=== PATIENT | male | born 1970 | race Hispanic/Latino ===

== ENCOUNTER 2021-12-30 15:16 | Inpatient (IN) | payer OTHER ==
[2021-12-30] MEDS ORDERED: LORazepam 2 MG/ML VIAL IV PRN ×3 (15:53)
[2021-12-30] MEDS ORDERED: SODIUM CHLORIDE 0.9% 1000 ML 1,000 ML IV ONE (15:54)
--- NOTE | 2021-12-30 15:58 | Emergency Department Report ---
HPI - General Chief Complaint: Seizure Time Seen by Provider: 12/30/21 15:40 - HPI HPI: Room 3 The patient is a 51-year-old male present with a chief complaint of seizures. The patient is currently at [facility] for alcohol detox when he repor tedly had "multiple seizures." The patient states he remembers getting dizzy and "nodding off" and his next memory is awakening in the ambulance. Per EMS the patient was witnessed having multiple seizures. Patient was administered Ativan 2 mg IM at 1430 by [facility] staff prior to transport to the ED. The patient denies history of seizures and states that he is at [facility] for alcohol detox. Patient states his last alcohol consumption occurred approximate 2 weeks ago. Patient appears to be on CIWA protocol at [facility] Past Medical Hx - Past Medical History Hx Hypertension: Yes Hx Psychiatric Treatment: Yes (Major depressive disorder) Additional medical history: Alcoholism - Surgical History Past Surgical History?: No Hx Cholecystectomy: Yes Hx Appendectomy: Yes - Family History Family history: no significant - Social History Smoking Status: Current Every Day Smoker (1 pack/day) Substance Use Type: None (Denies illicit drug use), Alcohol (History of consuming a 12 pack of beer daily) ED Review of Systems ROS: Stated complaint: SEIZURE/FROM [facility] Other details as noted in HPI Constitutional: no symptoms reported Eyes: denies: eye pain ENT: denies: ear pain Respiratory: no symptoms reported Cardiovascular: denies: chest pain Endocrine: no symptoms reported Gastrointestinal: denies: abdominal pain Musculoskeletal: denies: back pain Neurological: other (Seizure) Physical Exam - Physical Exam Vital Signs: Vital Signs 12/30/21 15:24 Temperature 98.9 F Pulse Rate 121 H Respiratory 14 Rate Blood Pressure 180/93 [Left] O2 Sat by Pulse 97 Oximetry Physical Exam: GENERAL: The patient is well-developed well-nourished male lying on stretcher not appearing to be in acute distress. [] HEENT: Normocephalic. Atraumatic. Extraocular motions are intact. Patient has moist mucous membranes. NECK: Supple. Trachea midline CHEST/LUNGS: Clear to auscultation. There is no respiratory distress noted. HEART/CARDIOVASCULAR: Regular. There is no tachycardia. There is no gallop rub or murmur. ABDOMEN: Abdomen is soft, nontender. Patient has normal bowel sounds. There is no abdominal distention. SKIN: There is no rash. There is no edema. There is no diaphoresis. NEURO: The patient is awake, alert, and oriented. The patient is cooperative. The patient has no focal neurologic deficits. The patient has normal speech. Trace tremulousness appreciated. No asterixis MUSCULOSKELETAL: There is no evidence of acute injury. ED Course Vital Signs 12/30/21 15:24 Temperature 98.9 F Pulse Rate 121 H Respiratory 14 Rate Blood Pressure 180/93 [Left] O2 Sat by Pulse 97 Oximetry ED Medical Decision Making - Lab Data Result diagrams: 12/30/21 15:55 12/30/21 15:55 Laboratory Tests 12/30/21 12/30/21 12/30/21 15:55 15:55 15:55 WBC 7.2 RBC 3.93 Hgb 13.7 Hct 39.4 MCV 100 H MCH 35 H MCHC 35 H RDW 15.9 H Plt Count 191 Lymph % (Auto) 14.7 [place] % (Auto) 8.2 H Eos % (Auto) 3.1 Baso % (Auto) 0.6 Lymph # (Auto) 1.1 L [place] # (Auto) 0.6 Eos # (Auto) 0.2 Baso # (Auto) 0.0 Seg Neutrophils % 73.4 H Seg Neutrophils # 5.3 Sodium 137 Potassium 3.7 Chloride 98.9 Carbon Dioxide 24 Anion Gap 18 BUN 14 Creatinine 0.9 Estimated GFR > 60 BUN/Creatinine Ratio 16 Glucose 135 H Calcium 9.6 Magnesium 2.20 Total Bilirubin 0.60 AST 29 ALT 23 Alkaline Phosphatase 106 Total Protein 6.6 Albumin 4.1 Albumin/Globulin Ratio 1.6 TSH 2.230 Free T4 1.12 Plasma/Serum Alcohol 12/30/21 15:55 WBC RBC Hgb Hct MCV MCH MCHC RDW Plt Count Lymph % (Auto) [place] % (Auto) Eos % (Auto) Baso % (Auto) Lymph # (Auto) [place] # (Auto) Eos # (Auto) Baso # (Auto) Seg Neutrophils % Seg Neutrophils # Sodium Potassium Chloride Carbon Dioxide Anion Gap BUN Creatinine Estimated GFR BUN/Creatinine Ratio Glucose Calcium Magnesium Total Bilirubin AST ALT Alkaline Phosphatase Total Protein Albumin Albumin/Globulin Ratio TSH Free T4 Plasma/Serum Alcohol < 0.01 - Radiology Data Radiology results: report reviewed (CT head), image reviewed (CT head) [facility] [address] [place] [address] Cat Scan Report Signed Patient: CODY SALINAS MR#: [id number] : 1970 Acct:[id number] Age/Sex: 51 / M ADM Date: 12/30/21 Loc: ED Attending Dr: Ordering Physician: EPIFANIO RAMIREZ MD Date of Service: 12/30/21 Procedure(s): CT head/brain wo con Accession Number(s): [id number] cc: EPIFANIO RAMIREZ MD CT BRAIN: 12/30/2021 INDICATION / CLINICAL INFORMATION: Seizures. COMPARISON: None available. FINDINGS: BRAIN/INTRACRANIAL STRUCTURES: Unenhanced CT images of the brain demonstrate no evidence of acute abnormality. Ventricles and sulci are somewhat prominent in size, consistent with mild diffuse cerebral atrophy for age. There is a central area of hypodensity present in the central rody, consistent with remote small vessel ischemic change. There is no evidence of acute large vessel territory ischemic injury, hemorrhage, or mass. There are no abnormal extra-axial fluid collections. EXTRACRANIAL STRUCTURES: Unremarkable. IMPRESSION: Cerebral atrophy for age. Central pontine hypodensity, consistent with remote small vessel ischemic change. No acute abnormality. All CT scans at this location are performed using dose reduction to ALARA by means of automated exposure control. Signer Name: Sergio Lea MD Signed: 12/30/2021 4:28 PM Workstation Name: [id number] Transcribed By: KANIKA Dictated By: Sergio Lea MD Electronically Authenticated By: Sergio Lea MD Signed Date/Time: 12/30/211627 DD/ 25 TD/TT: - Differential Diagnosis Alcohol withdrawal seizures, ICH, hypomagnesemia, Critical care attestation.: If time is entered above; I have spent that time in minutes in the direct care of this critically ill patient, excluding procedure time. ED Disposition Clinical Impression: Alcohol withdrawal Disposition: ADMITTED INPATIENT Is pt being admited?: Yes Does the pt Need Aspirin: No Condition: Fair Time of Disposition: 17:08 (Hospitalist called (Dr. Murphy))
--- NOTE | 2021-12-30 16:32 | Cat Scan Report ---
CT BRAIN: 12/30/2021 INDICATION / CLINICAL INFORMATION: Seizures. COMPARISON: None available. FINDINGS: BRAIN/INTRACRANIAL STRUCTURES: Unenhanced CT images of the brain demonstrate no evidence of acute abn ormality. Ventricles and sulci are somewhat prominent in size, consistent with mild diffuse cerebral atrophy fo r age. There is a central area of hypodensity present in the central rody, consistent with remote small vess el ischemic change. There is no evidence of acute large vessel territory ischemic injury, hemorrhage, or mass. There are no abnormal extra-axial fluid collections. EXTRACRANIAL STRUCTURES: Unremarkable. IMPRESSION: Cerebral atrophy for age. Central pontine hypodensity, consistent with remote small vessel ischemic change. No acute abnormality. All CT scans at this location are performed using dose reduction to ALARA by means of automated expos ure control. Signer Name: Sergio Lea MD Signed: 12/30/2021 4:28 PM Workstation Name: [id number]
[2021-12-30 16:53] LABS: Alanine Aminotransferase 23 units/L (7-56); Albumin 4.1 g/dL (3.9-5); BUN/Creatinine Ratio 16; Blood Urea Nitrogen 14 mg/dL (9-20); Calcium 9.6 mg/dL (8.4-10.2); Hemolysis Index 10
[2021-12-30 16:58] LABS: Basophils % (Auto) 0.6 % (0.0-1.8); Eosinophils # (Auto) 0.2 K/mm3 (0.0-0.4); Eosinophils % (Auto) 3.1 % (0.0-4.3); Hematocrit 39.4 % (35.5-45.6); Hemoglobin 13.7 gm/dl (11.8-15.2); Lymphocytes # (Auto) 1.1 K/mm3 (1.2-5.4); Lymphocytes % (Auto) 14.7 % (13.4-35.0); Mean Corpuscular HGB Conc 35 % (32-34); Mean Corpuscular Volume 100 fl (84-94); Monocytes # (Auto) 0.6 K/mm3 (0.0-0.8); Monocytes % (Auto) 8.2 % (0.0-7.3); Platelet Count 191 K/mm3 (140-440); Red Blood Count 3.93 M/mm3 (3.65-5.03); Red Cell Distribution Width 15.9 % (13.2-15.2)
[2021-12-30 17:06] LABS: Free T4 (Free Thyroxine) 1.12 ng/dL (0.76-1.46)
--- NOTE | 2021-12-30 17:11 | History and Physical Report ---
History of Present Illness Chief complaint: He kept having seizures History of present illness: 51 YO Male with HTN, MDD, ETOH Dependence, Nicotine Dependence, Medication Noncompliance presents to ED for evaluation. Patient is confused with diminished cognition at the time my evaluation and is unable provide detailed history. Patient history taken from EMS staff, ED staff, as well as reviewed with staff. As per staff the patient experienced multiple seizures today. The patient was admitted to [facility] for alcohol dependence. Patient reportedly consumes approximately 12 beers daily. EMS was notified for the aforementioned symptoms and upon arrival the patient was found to be in distress and subsequently transported to [facility] for the care and evaluation of the aforementioned symptoms. The patient was seen and evaluated in the emergency department. All lab and imaging studies reviewed. Patient found to have alcohol withdrawal seizures, metabolic encephalopathy, delirium tremens. Patient admitted to telemetry and initiated on CIWA protocol and treated with supportive care. No reports of fever, chills, chest pain, palpitation or productive cough, skin rash, recent contact, known exposure to COVID-19. No prior admission for review. No medication listed at time of admission for reconciliation. Advanced care planning conducted in ED. Past History Past Medical History: hypertension, other (See HPI) Past Surgical History: appendectomy, cholecystectomy Social history: single, smoking, alcohol abuse Family history: hypertension Medications and Allergies Allergies Allergy/AdvReac Type Severity Reaction Status Date / Time No Known Allergies Allergy Verified 12/30/21 15:26 Active Meds: Active Medications Lorazepam (Lorazepam 2 Mg/Ml Vial) 2 mg IV Q1HR PRN PRN Reason: CIWA-Ar 8-15 Lorazepam (Lorazepam 2 Mg/Ml Vial) 4 mg IV Q1HR PRN PRN Reason: CIWA-Ar 16-25 Lorazepam (Lorazepam 2 Mg/Ml Vial) 4 mg IV Q15MIN PRN PRN Reason: CIWA-Ar >25 Review of Systems ROS unobtainable: due to mental status Exam - Constitutional Vitals: Temp Pulse Resp BP Pulse Ox 98.9 F 99 H 17 146/97 96 12/30/21 15:24 12/30/21 16:35 12/30/21 16:35 12/30/21 16:35 12/30/21 16:35 General appearance: Present: mild distress - EENT Eyes: Present: PERRL, miosis ENT: hearing intact, clear oral mucosa - Neck Neck: Present: supple - Respiratory Respiratory effort: normal Respiratory: bilateral: CTA - Cardiovascular Rhythm: regular Heart Sounds: Present: S1 & S2 - Extremities Extremities: pulses symmetrical, No edema Peripheral Pulses: within normal limits - Abdominal General gastrointestinal: Present: soft, non-tender, non-distended, normal bowel sounds Male genitourinary: Present: normal - Integumentary Integumentary: Present: clear, warm, dry - Musculoskeletal Musculoskeletal: generalized weakness - Psychiatric Psychiatric: no appropriate mood/affect, no intact judgment & insight, no memory intact, agitated - Neurologic Neurologic: CNII-XII intact, no focal deficits, moves all extremities, no gait normal Results - Labs CBC & Chem 7: 12/30/21 15:55 12/30/21 15:55 Labs: Abnormal lab results 12/30/21 12/30/21 Range/Units 15:55 15:55 MCV 100 H (84-94) fl MCH 35 H (28-32) pg MCHC 35 H (32-34) % RDW 15.9 H (13.2-15.2) % [place] % (Auto) 8.2 H (0.0-7.3) % Lymph # (Auto) 1.1 L (1.2-5.4) K/mm3 Seg Neutrophils % 73.4 H (40.0-70.0) % Glucose 135 H (75-100) mg/dL Assessment and Plan - Patient Problems (1) Alcohol withdrawal syndrome Current Visit: Yes Status: Acute Qualifiers: Complication of substance-induced condition: with perceptual disturbance Qualified Code(s): F10.232 - Alcohol dependence with withdrawal with perceptual disturbance Plan to address problem: CIWA protocol, IV fluid resuscitation therapy, banana bag, thiamine, folic acid, multivitamin daily, outpatient follow-up with Alcoholics Anonymous. (2) Delirium tremens Current Visit: Yes Status: Acute Plan to address problem: CIWA protocol, benzodiazepine therapy as clinically indicated, IV fluid resuscitation therapy, neuro check, seizure precautions, aspiration precautions, fall precautions (3) Metabolic encephalopathy Current Visit: Yes Status: Acute Plan to address problem: CT head, neuro check, seizure precautions (4) Nicotine dependence Current Visit: Yes Status: Acute Qualifiers: Nicotine product type: cigarettes Substance use status: in withdrawal Qualified Code(s): F17.213 - Nicotine dependence, cigarettes, with withdrawal Plan to address problem: Supportive care, smoking cessation counseling (5) Hypertension Current Visit: Yes Status: Acute Qualifiers: Hypertension type: primary hypertension Qualified Code(s): I10 - Essential (primary) hypertension Plan to address problem: Monitor blood pressure every shift, continue medical management. (6) Major depression Current Visit: Yes Status: Acute Plan to address problem: Mental health team consulted, continue medical management. (7) DVT prophylaxis Current Visit: Yes Status: Acute Plan to address problem: SCD to bilateral lower extremities while in bed (8) Advance care planning Current Visit: Yes Status: Acute Plan to address problem: Disease education conducted, care plan discussed, diagnoses discussed, prognosis discussed, patient is full code, +30 minutes.
[2021-12-30 17:19] LABS: Amphetamine Screen,Urine Negative; Benzodiazepines Screen,Urine Negative; Cocaine Screen,Urine Negative; Methadone Screen,Urine Negative; Opiate Screen,Urine Negative
[2021-12-30 17:21] LABS: Cannabinoid Screen,Urine Positive
[2021-12-30] MEDS ORDERED: oxyCODONE /ACETAMINOPHEN 5-325MG TAB PO PRN (18:01)
[2021-12-30] MEDS ORDERED: ALBUTEROL 2.5 MG/3 ML NEBU IH PRN (18:01)
[2021-12-30] MEDS ORDERED: ONDANSETRON 4 MG/2 ML INJ IV PRN (18:01)
[2021-12-30] MEDS ORDERED: ACETAMINOPHEN 325 MG TAB PO PRN (18:01)
[2021-12-30] MEDS ORDERED: HYDROmorphone 1 MG/1 ML INJ IV PRN (18:01)
[2021-12-30] MEDS ORDERED: THIAMINE 100 MG, FOLIC ACID 1 MG, MULTIPLE VITAMIN INJ, ADULT 10 ML in SODIUM CHLORIDE ... IV ONE (18:03)
[2021-12-30] MEDS ORDERED: THIAMINE 100 MG TAB PO ONE (18:03)
[2021-12-30] MEDS ORDERED: MULTIVITAMINS ,THERAPEUTIC TAB PO ONE (18:03)
[2021-12-30] MEDS: SODIUM CHLORIDE 0.9% 1000 ML 1,000 ML IV SCH (22:31)
--- NOTE | 2021-12-31 07:37 | Progress Note ---
Assessment and Plan Assessment and plan: #Acute metabolic encephalopathy -CT head shows age related changes, no acute changes -neuro checks, seizure precautions -Neurology consultation ordered #Seizure -no prior history per patient -Neurology consult #Alcohol withdrawal syndrome #Alcohol dependence -patient reports abstinence from ETOH for over a month -continue CIWA protocol, multivitamins -outpatient follow-up with Alcoholics Anonymous. #Hypertension -restarted losartan 100mg qday, patient also taking HCTZ 12.5mg will hold at this time #Major depression -Psychiatry consult -patient takes celexa outpatient dosage unknown, will restart after med reconciliation #Nicotine dependence -continue supportive care at this time History Interval history: No acute events overnight. Patient reports feeling fine and ready to go. Denies recent alcohol use. He has been in inpatient psychiatric facilities for the last 3 weeks. He has no complaints at this time. Hospitalist Physical - Physical exam Narrative exam: GENERAL: Well-developed well-nourished. In no acute distress. HEENT: Normocephalic. Atraumatic. NECK: Supple. CHEST/LUNGS: CTAB on room air HEART/CARDIOVASCULAR: RRR. No murmur, rubs or gallops appreciated. ABDOMEN: +BS. NT/ND. SKIN: No rashes noted. NEURO: No focal motor deficit. Follows all commands and is ambulatory. MUSCULOSKELETAL: No joint effusion EXTREMITIES: No cyanosis, clubbing or edema. PSYCH: Cooperative. - Constitutional Vitals: Temp Pulse Resp BP Pulse Ox 97.6 F 88 18 117/82 97 12/31/21 04:18 12/31/21 04:18 12/31/21 04:18 12/31/21 04:18 12/31/21 04:18 General appearance: Present: mild distress Results - Labs CBC & Chem 7: 12/30/21 15:55 12/31/21 07:08 Labs: Laboratory Last Values WBC 7.2 K/mm3 (4.5-11.0) 12/30/21 15:55 RBC 3.93 M/mm3 (3.65-5.03) 12/30/21 15:55 Hgb 13.7 gm/dl (11.8-15.2) 12/30/21 15:55 Hct 39.4 % (35.5-45.6) 12/30/21 15:55 MCV 100 fl (84-94) H 12/30/21 15:55 MCH 35 pg (28-32) H 12/30/21 15:55 MCHC 35 % (32-34) H 12/30/21 15:55 RDW 15.9 % (13.2-15.2) H 12/30/21 15:55 Plt Count 191 K/mm3 (140-440) 12/30/21 15:55 Lymph % (Auto) 14.7 % (13.4-35.0) 12/30/21 15:55 [place] % (Auto) 8.2 % (0.0-7.3) H 12/30/21 15:55 Eos % (Auto) 3.1 % (0.0-4.3) 12/30/21 15:55 Baso % (Auto) 0.6 % (0.0-1.8) 12/30/21 15:55 Lymph # (Auto) 1.1 K/mm3 (1.2-5.4) L 12/30/21 15:55 [place] # (Auto) 0.6 K/mm3 (0.0-0.8) 12/30/21 15:55 Eos # (Auto) 0.2 K/mm3 (0.0-0.4) 12/30/21 15:55 Baso # (Auto) 0.0 K/mm3 (0.0-0.1) 12/30/21 15:55 Seg Neutrophils % 73.4 % (40.0-70.0) H 12/30/21 15:55 Seg Neutrophils # 5.3 K/mm3 (1.8-7.7) 12/30/21 15:55 Sodium 137 mmol/L (137-145) 12/30/21 15:55 Potassium 3.7 mmol/L (3.6-5.0) 12/30/21 15:55 Chloride 98.9 mmol/L (98-107) 12/30/21 15:55 Carbon Dioxide 24 mmol/L (22-30) 12/30/21 15:55 Anion Gap 18 mmol/L 12/30/21 15:55 BUN 14 mg/dL (9-20) 12/30/21 15:55 Creatinine 0.9 mg/dL (0.8-1.3) 12/30/21 15:55 Estimated GFR > 60 ml/min 12/30/21 15:55 BUN/Creatinine Ratio 16 % 12/30/21 15:55 Glucose 135 mg/dL (75-100) H 12/30/21 15:55 Calcium 9.6 mg/dL (8.4-10.2) 12/30/21 15:55 Magnesium 2.20 mg/dL (1.7-2.3) 12/30/21 15:55 Total Bilirubin 0.60 mg/dL (0.1-1.2) 12/30/21 15:55 AST 29 units/L (5-40) 12/30/21 15:55 ALT 23 units/L (7-56) 12/30/21 15:55 Alkaline Phosphatase 106 units/L (35-129) 12/30/21 15:55 Total Protein 6.6 g/dL (6.3-8.2) 12/30/21 15:55 Albumin 4.1 g/dL (3.9-5) 12/30/21 15:55 Albumin/Globulin Ratio 1.6 % 12/30/21 15:55 TSH 2.230 mlU/mL (0.270-4.200) 12/30/21 15:55 Free T4 1.12 ng/dL (0.76-1.46) 12/30/21 15:55 Urine Opiates Screen Negative 12/30/21 16:35 Urine Methadone Screen Negative 12/30/21 16:35 Ur Barbiturates Screen Negative 12/30/21 16:35 Ur Phencyclidine Scrn Negative 12/30/21 16:35 Ur Amphetamines Screen Negative 12/30/21 16:35 U Benzodiazepines Scrn Negative 12/30/21 16:35 Urine Cocaine Screen Negative 12/30/21 16:35 U Marijuana (THC) Screen Positive 12/30/21 16:35 Drugs of Abuse Note Disclamer 12/30/21 16:35 Plasma/Serum Alcohol < 0.01 % (0-0.07) 12/30/21 15:55 Pino/IV: Voiding Method Toilet Active Medications - Current Medications Current Medications: Generic Name Dose Route Start Last Admin Trade Name Freq PRN Reason Stop Dose Admin Acetaminophen 650 mg 12/30/21 18:01 Acetaminophen 325 Mg Tab PO Q4H PRN Pain MILD(1-3)/Fever >100.5/ALVES Albuterol 2.5 mg 12/30/21 18:01 Albuterol 2.5 Mg/3 Ml Nebu IH Q4HRT PRN Shortness Of Breath Folic Acid 1 mg 12/31/21 10:00 Folic Acid 1 Mg Tab PO QDAY BOBBY Hydromorphone HCl 0.5 mg 12/30/21 18:01 Hydromorphone 1 Mg/1 Ml Inj IV Q23H PRN Pain , Severe (7-10) Sodium Chloride 1,000 mls @ 125 mls/hr 12/30/21 18:15 12/30/21 22:31 Nacl 0.9% 1000 Ml IV 125 mls/hr DIRECT BOBBY Administration Lorazepam 2 mg 12/30/21 15:53 Lorazepam 2 Mg/Ml Vial IV Q1HR PRN CIWA-Ar 8-15 Lorazepam 4 mg 12/30/21 15:53 Lorazepam 2 Mg/Ml Vial IV Q1HR PRN CIWA-Ar 16-25 Lorazepam 4 mg 12/30/21 15:53 12/31/21 01:00 Lorazepam 2 Mg/Ml Vial IV 4 mg Q15MIN PRN Administration CIWA-Ar >25 Ondansetron HCl 4 mg 12/30/21 18:01 Ondansetron 4 Mg/2 Ml Inj IV Q8H PRN Nausea And Vomiting Oxycodone/Acetaminophen 1 tab 12/30/21 18:01 Oxycodone /Acetaminophen 5-325mg Tab PO Q12H PRN Pain, Moderate (4-6) Sodium Chloride 10 ml 12/30/21 22:00 12/30/21 22:31 Sodium Chloride 0.9% 10 Ml Flush Syringe IV 10 ml BID BOBBY Administration Sodium Chloride 10 ml 12/30/21 18:01 Sodium Chloride 0.9% 10 Ml Flush Syringe IV PRN PRN LINE FLUSH
[2021-12-31 07:47] LABS: Blood Urea Nitrogen 12 mg/dL (9-20); Calcium 8.9 mg/dL (8.4-10.2); Hemolysis Index 4
[2021-12-31] MEDS: SODIUM CHLORIDE 0.9% 1000 ML 1,000 ML IV SCH (07:48)
[2021-12-31 07:54] LABS: BUN/Creatinine Ratio 17
[2021-12-31] MEDS ORDERED: FOLIC ACID 1 MG TAB PO SCH (10:00)
[2021-12-31] MEDS ORDERED: LOSARTAN 50 MG TAB PO SCH (11:00)
--- NOTE | 2021-12-31 11:13 | Consultation ---
History of Present Illness - Reason for Consult Consult date: 12/31/21 Reason for consult: Detox - Chief Complaint Chief complaint: He kept having seizures - History of Present Psychiatric Illness ED Note: The patient is a 51-year-old male present with a chief complaint of seizures. The patient is currently at [facility] for alcohol detox when he reportedly had "multiple seizures." The patient states he remembers getting dizzy and "nodding off" and his next memory is awakening in the ambulance. Per EMS the patient was witnessed having multiple seizures. Patient was administered Ativan 2 mg IM at 1430 by [facility] staff prior to transport to the ED. The patient denies history of seizures and states that he is at [facility] for alcohol detox. Patient states his last alcohol consumption occur red approximate 2 weeks ago. Patient appears to be on CIWA protocol at [facility]. The patient was seen today. He is calm, alert and oriented x2. The patient reports that he got into an argument with his children threatening them which resulted in them calling the police and him being sent to [facility]. He reports having seizures at [facility]. He denies being depressed and became upset when asked about suicidality. Patient states his last alcohol consumption was about 2 weeks ago. No withdrawal symptoms noted. the patient denies any current suicidal/homicidal ideation. Diagnoses: Depression, Alcohol use disorder Suicide attempts or Self-harm behavior: Denies Prior psychiatric hospitalizations: Yes Substance Abuse history: Denies Previous psychiatric medications tried:Celexa, Trazodone Outpatient treatment: Unknown PAST MEDICAL HISTORY: unknown Family Psychiatric History: None reported or documented SOCIAL HISTORY Marital Status: Single Living Arrangements: lives alone Employment Status: Self employed Access to guns/weapons: Denies Education: 12th grade History of Abuse: none reported Legal History: none reported REVIEW OF SYSTEMS Constitutional: Negative for weight loss ENT: Negative for stridor Respiratory: Negative for cough or hemoptysis All other systems reviewed and are negative MENTAL STATUS EXAMINATION General Appearance and Behavior: Age appropriate, good hygiene, wearing appropriate clothes, calm, cooperative Cooperation: Participating/engaged Psychomotor Behavior: Normal Mood: "ok" Affect and affective range: congruent with mood Thought Process: Goal directed Thought Content: Reality oriented Speech: Normal Suicidal Ideation: Denies Homicidal Ideation: Denies Hallucinations: Denies Delusions: None elicited Impulse Control: Normal Insight and Judgment: Limited insight and judgment, Memory: Normal Attention: Divided Orientation: Alert, oriented Assessment and Plan (1)major depressive disorder Current Visit: Yes Status: Acute Treatment Plan Continue home meds Celexa 40mg po daily Trazodone 50mg po QHS Continue CIWA protocol The patient needs to follow up with his outpatient psychiatrist and therapist. Disposition: Do not recommend psychiatric inpatient admission at this time. Will follow for medication management. Thanks Case staffed with Dr. Ramos Medications and Allergies Medications and Allergies Allergies Allergy/AdvReac Type Severity Reaction Status Date / Time No Known Allergies Allergy Verified 12/30/21 15:26 Active Meds: Active Medications Acetaminophen (Acetaminophen 325 Mg Tab) 650 mg PO Q4H PRN PRN Reason: Pain MILD(1-3)/Fever >100.5/ALVES Albuterol (Albuterol 2.5 Mg/3 Ml Nebu) 2.5 mg IH Q4HRT PRN PRN Reason: Shortness Of Breath Folic Acid (Folic Acid 1 Mg Tab) 1 mg PO QDAY [facility] Last Admin: 12/31/21 09:23 Dose: 1 mg Hydromorphone HCl (Hydromorphone 1 Mg/1 Ml Inj) 0.5 mg IV Q23H PRN PRN Reason: Pain , Severe (7-10) Sodium Chloride (Nacl 0.9% 1000 Ml) 1,000 mls @ 125 mls/hr IV DIRECT BOBBY Last Admin: 12/31/21 07:48 Dose: 125 mls/hr Lorazepam (Lorazepam 2 Mg/Ml Vial) 2 mg IV Q1HR PRN PRN Reason: CIWA-Ar 8-15 Last Admin: 12/31/21 08:30 Dose: 2 mg Lorazepam (Lorazepam 2 Mg/Ml Vial) 4 mg IV Q1HR PRN PRN Reason: CIWA-Ar 16-25 Lorazepam (Lorazepam 2 Mg/Ml Vial) 4 mg IV Q15MIN PRN PRN Reason: CIWA-Ar >25 Last Admin: 12/31/21 01:00 Dose: 4 mg Losartan Potassium (Losartan 50 Mg Tab) 100 mg PO QDAY [facility] Ondansetron HCl (Ondansetron 4 Mg/2 Ml Inj) 4 mg IV Q8H PRN PRN Reason: Nausea And Vomiting Oxycodone/Acetaminophen (Oxycodone /Acetaminophen 5-325mg Tab) 1 tab PO Q12H PRN PRN Reason: Pain, Moderate (4-6) Sodium Chloride (Sodium Chloride 0.9% 10 Ml Flush Syringe) 10 ml IV BID BOBBY Last Admin: 12/31/21 09:24 Dose: 10 ml Sodium Chloride (Sodium Chloride 0.9% 10 Ml Flush Syringe) 10 ml IV PRN PRN PRN Reason: LINE FLUSH Mental Status Exam - Vital signs Last Vital Signs Temp 97.6 F 12/31/21 04:18 Pulse 88 12/31/21 04:18 Resp 18 12/31/21 04:18 BP 117/82 12/31/21 04:18 Pulse Ox 97 12/31/21 10:00 Results Result Diagrams: 12/30/21 15:55 12/31/21 07:08 Abnormal lab results 12/30/21 12/30/21 12/31/21 Range/Units 15:55 15:55 07:08 MCV 100 H (84-94) fl MCH 35 H (28-32) pg MCHC 35 H (32-34) % RDW 15.9 H (13.2-15.2) % [place] % (Auto) 8.2 H (0.0-7.3) % Lymph # (Auto) 1.1 L (1.2-5.4) K/mm3 Seg Neutrophils % 73.4 H (40.0-70.0) % Sodium 135 L (137-145) mmol/L Creatinine 0.7 L (0.8-1.3) mg/dL Glucose 135 H (75-100) mg/dL All other labs normal.
[2021-12-31] MEDS ORDERED: CITALOPRAM 20 MG TAB PO SCH (12:00)
[2021-12-31 12:36] VITALS: BP 131/83
[2021-12-31] MEDS ORDERED: traZODone 50 MG TAB PO SCH (22:00)
== END 2021-12-31 14:30 | disposition left against medical advice (07) | DRG 100 ==
LOC: ED 15:16 → 3A 18:01
PROVIDERS: ADMIT Internal Medicine; ATTEND Student in an Organized Health Care Education/Training Program
DX: G40.89 Other seizures (principal); G93.41 Metabolic encephalopathy; F10.231 Alcohol dependence with withdrawal delirium; F17.213 Nicotine dependence, cigarettes, with withdrawal; F32.9 Major depressive disorder, single episode, unspecified; Z90.49 Acquired absence of other specified parts of digestive tract; I10 Essential (primary) hypertension; Z82.49 Family history of ischemic heart disease and other diseases of the circulatory system
CPT/HCPCS: 36415; 70450; 80048; 80053; 80307; 80320; 83735; 84439; 84443; 85025; G0378; J3490; Q0162; G0480; J2060; J3411; J7030